=== PATIENT | female | born 1985 | race Caucasian/White ===

== ENCOUNTER 2022-04-26 01:31 | Day surgery (SDC) | payer OTHER, SELFPAY ==
[2022-04-25 10:08] VITALS: BMI 21.0
--- NOTE | 2022-04-25 10:18 | PC.NURSE ---
Report to the Outpatient Waiting Room, entrance under the green pavilion located off [facility], at time 1030 on date 04/26/22. OR Time: 1230 - You and your visitor will be asked a series of questions to screen for COVID 19 for your protection. - Only one visitor is allowed at this time. - The patient visitor is requested to leave or wait in car when not with patient. - A mask is required within the hospital. Patients may have clear liquids (water, carbonated beverages, clear teas, apple juice) until 3 hours prior to surgery with a maximum of 20 ounces. - No food from midnight until time of surgery - Infants may have breast milk until 4 hours before surgery, infant formula 6 hours prior to surgery. - Children will be allowed to drink immediately following surgery. If applicable, please bring a bottle or sippy cup to assist with drinking. Juice, water, soda, and popsicles are readily available. For infants on formula, please bring formula the day of surgery. Pacifiers are allowed. Take the following medications with a SIP of water the morning of surgery: NA Medications to discontinue per physician NA Date to take last dose Please no make-up, nail french, hairspray, perfume, deodorant, or body powder the day of surgery. No jewelry (including any body piercings) or valuables the day of surgery, leave them at home. Please take a shower or bath the night before, or the morning of, surgery with an antibacterial soap. Wear comfortable, loose fitting clothing. Children are encouraged to wear pajamas. - Jewelry must be removed prior to entering the operating room. Rings and piercings that are not removed may be cut off. - The hospital will not accept responsibility for valuables. - Please leave all valuables, including medications, at home the day of surgery. If you are going home after surgery, a licensed carrier driver must drive you home. - NO public transportation without another adult. - We recommend that an adult stay with you for 24 hours following discharge. - We also recommend that you do not drive, make important decision, drink alcoholic beverages, or take any drugs that were not prescribed by your health care provider for at least 24 hours after your discharge time. For Pediatric surgeries, we recommend two adults accompany the child home (only one inside the building at this time). Follow any additional instructions given to you from your surgeon. If you or anyone in your household have experienced Covid symptoms in the past week, please notify your surgeon or the nurse liaison at the phone number below for possible testing. Telephone instructions given to patient Tangela and asked if any additional questions and then verbalized understanding. Patient advised to call surgeon office or pre surgery nurse liaison [phone] if any additional questions.
[2022-04-26] VITALS (7 sets, daily range): BP systolic 125–139; BP diastolic 70–88; PULSE 56–90; RESP 17–21; TEMP 36.7–37; O2SAT 99–100
--- NOTE | ~2022-04-26 | XR_ITS ---
EXAMINATION: XR abdomen/kub 1V DATE: 04/26/2022 10:44 INDICATION: Kidney stone. TECHNIQUE: A supine view of the abdomen on 2 radiographs was obtained. COMPARISON: Abdomen radiographs 05/10/2016. FINDINGS: There are no dilated loops of bowel. There are approximately 5 stones in right kidney measu ring up to 3 mm. There is a 6 mm stone in left kidney. The kidneys are obscured by bowel. IMPRESSION: 1. Bilateral kidney stones. Reviewed, dictated and finalized at location A. IMPRESSION: 1. Bilateral kidney stones.
--- NOTE | 2022-04-26 07:00 | WPDHPUPDATE1 ---
History and Physical Update Update Date/Time: 04/26/22 07:00 History and Physical has been reviewed, including an updated exam of the patient. There are NO changes in the patient's condition. Risks, benefits, and alternatives have been discussed and questions answered. Patient agrees to proceed with procedure.
[2022-04-26] MEDS: LACTATED RINGERS 1,000 ML 30 ML IV CONT (11:15)
[2022-04-26] MEDS: SCOPOLAMINE 1.5 MG PATCH TRANSDERM (11:30)
[2022-04-26 11:36] LABS: Partial Thromboplastin Time 32.3 SECONDS (22.3-36.8)
--- NOTE | 2022-04-26 12:54 | P.PNAN_ITS ---
Anes - Initial Pre Proc Eval Procedure: Operation Date: 04/26/22 12:30 Proposed Procedures p Left Extracorporeal Shock Wave Lithotripsy, - Basilio James MD s Cystoscopy, Right Ureteroscopy with Possible Right Stone Extraction, Possible Right Stent Placement, Possible Holmium Laser - Basilio James MD Date/Time: 04/26/22 12:54 Surgeon: Basilio James MD Pre Op Diagnosis: bilat kidney stones Patient Data Age: 37 Gender: F Height: 1.6 m Weight: 54.2 kg Last Vital Signs Temp 37.0 C 04/26/22 11:15 Pulse 66 04/26/22 11:15 Resp 18 04/26/22 11:15 BP 139/87 04/26/22 11:15 Pulse Ox 100 04/26/22 11:15 O2 Del Method Room Air 04/26/22 11:15 Allergies Allergy/AdvReac Type Severity Reaction Status Date / Time No Known Allergies Allergy Unverified 04/26/22 11:40 Home Medications Medication Instructions Recorded Confirmed Type loratadine 10 mg tablet (Claritin) 10 mg PO DAILY 04/25/22 04/26/22 History Laboratory Tests 04/26/22 11:14 PT 13.0 Seconds Seconds (11.1-14.7) INR 1.0 APTT 32.3 SECONDS SECONDS (22.3-36.8) Patient hx anesthesia problems: none Family hx anesthesia problems: none Results Review: All pre-operative results and documents have been reviewed as part of the pre- operative evaluation. [facility] Past Medical History Medical History GERD (gastroesophageal reflux disease) Social History Social History Substance use: never Substance use type: does not use Living arrangements: with family Anes - Eval Final PreProcedure Day of Procedure 04/26/22 12:54 Patient weight: normal Heart: regular rate and rhythm Lungs: clear to auscultation Airway: Mallampati scale class II Neurological: alert and oriented Last oral intake: >/= 8 hours ASA classification: II Emergent: no Anesthetic plan: proceed Anesthesia type and monitoring: general LMA and standard monitoring Results Review: All pre-operative results and documents have been reviewed as part of the pre- operative evaluation. Informed Consent: The patient's anesthetic plan and its attendant risks and benefits were discussed with the patient/family/POA. Questions were solicited and answers provided to the satisfaction of the patient/family/POA.
[2022-04-26] MEDS: ceFAZolin 2 GM/D5W 50 ML 2 GM/50 ML BAG IVPB (13:20)
--- NOTE | 2022-04-26 13:31 | W.PM.PROC2 ---
Procedure Note - Detailed Date of Procedure 04/26/22 Pre-op Diagnosis Bilateral kidney stones, possible right distal ureteral calculus Post-op Diagnosis Other ( Bilateral kidney stones with no right ureteral calculi) Procedure Performed Cystoscopy, right ureteroscopy, left ESWL Surgeon Basilio James MD Description of Procedure patient is brought to the operative suite received prepped draped in routine sterile fashion while in dorsal lithotomy position after the uneventful induction of a general LMA anesthetic. Cystoscopy is undertaken with a 19 F rigid cystoscope. Her bladder neck urethra are endoscopically normal. Bladder mucosa is normal there was no intravesical foreign body or neoplasm. I placed a 0.035 in glidewire into the right renal pelvis and performed distal ureteroscopy to the mid ureter with a short tapered semi-rigid ureteral scope without the need for ureteral dilatation. Right distal ureter is endoscopically normal without hyperemia. There was no stones or other identifiable pathology. Scopes and wires were removed and she was positioned in the supine position. The focal point of the Lithotripter was placed at the collection of fiber 6 stones in her left lower pole calyx that were contiguous. A total of 2500 shocks were delivered at a power setting of 4. There appeared to be good fragmentation of the stones. She was taken to the recovery room in good condition. Drains No Packing No Pathology None sent Condition Stable Disposition PACU
== END 2022-04-26 15:20 | disposition home or self-care (01) ==
PROVIDERS: PCP Internal Medicine; Visit Provider Urology
PROC: (CPT 50590; principal; 2022-04-26 12:30)
PROC: (CPT 52352; 2022-04-26 12:30)
DX: N20.0 Calculus of kidney (principal); R10.9 Unspecified abdominal pain; R31.29 Other microscopic hematuria; K21.9 Gastro-esophageal reflux disease without esophagitis
CPT/HCPCS: 50590; 52000; 36415; 74018; 85610; 85730; A9270; C1769; J0690; J1100; J2250; J2405; J2704; J3010; J7030; J7120

== ENCOUNTER 2023-01-16 00:20 | Day surgery (SDC) | payer OTHER, SELFPAY ==
[2023-01-14 10:40] VITALS: BMI 20.6
--- NOTE | 2023-01-14 10:43 | PC.NURSE ---
Report to the Outpatient Waiting Room, entrance under the green pavilion located off [facility], at time 0600 on date 01/16/23. Planned Procedure Time: 0730. Time changes happen often and if your time is changed the preop area will call you the afternoon before. - You and your visitor will be asked to self-screen and do not enter if you have any COVID symptoms. - A mask is optional within the hospital at this time. Patients may have clear liquids (water, carbonated beverages, clear teas, apple juice) until 3 hours prior to surgery with a maximum of 20 ounces. - No food from midnight until time of surgery Take the following medications with a SIP of water the morning of surgery: NONE DO NOT STOP ANY OF YOUR OTHER PRESCRIPTION MEDICATIONS PRIOR TO SURGERY EXCEPT THE FOLLOWING Medications to discontinue per physician: N/A Date to take last dose: N/A Please no make-up, nail khmer, hairspray, perfume, deodorant, or body powder the day of surgery. No jewelry (including any body piercings) or valuables the day of surgery, leave them at home. Please take a shower or bath the night before, or the morning of, surgery with an antibacterial soap. Wear comfortable, loose fitting clothing. - Jewelry must be removed prior to entering the operating room. Rings and piercings that are not removed may be cut off. - The hospital will not accept responsibility for valuables. - Please leave all valuables, including medications, at home the day of surgery. If you are going home after surgery, a licensed sales warehouse driver must drive you home. - NO public transportation without another adult if you receive anesthesia. - We recommend that an adult stay with you for 24 hours following discharge. - We also recommend that you do not drive, make important decision, drink alcoholic beverages, or take any drugs that were not prescribed by your health care provider for at least 24 hours after your discharge time. Follow any additional instructions given to you from your surgeon. If you or anyone in your household have experienced Covid symptoms in the past week, please notify your surgeon or the nurse liaison at the phone number below for possible testing. Telephone instructions given to PT - YAMILETH CORREA and asked if any additional questions and then verbalized understanding. Patient advised to call surgeon office or pre surgery nurse liaison [phone] if any additional questions.
--- NOTE | 2023-01-14 16:39 | PM.HPGS ---
History of Present Illness History of Present Illness Consent: Risks, benefits, and alternatives have been discussed and questions answered. Patient agrees to proceed with procedure. Chief complaint: Right Kidney Stone Narrative: Angy Mac is a 37 year old female with a long history of recurrent urolithiasis who has required multiple procedures in the past. She recently called with persistent right flank pain and outside imaging with a KUB shows a new calcification measuring 7 mm in her right hemipelvis consistent with a distal ureteral calculus. After discussion of options we elected to forego CT imaging but proceed with cysto and ureteroscopy with stone extraction with possible retrograde pyelography laser lithotripsy and stent placement. She is aware the risk including, but not limited to, adverse cardiopulmonary events and need for additional procedures. Review of Systems Cardiovascular: Cardiovascular: Denies chest pain, Denies lightheadedness, Denies palpitations and Denies dyspnea Respiratory: Respiratory: Denies dyspnea Gastrointestinal: Gastrointestinal: Denies diarrhea, Denies nausea and Denies vomiting Genitourinary: Genitourinary: Denies hematuria and Denies dysuria Endocrine: Endocrine: Denies palpitations PENDING SALE TO [facility] Past Medical History Medical History GERD (gastroesophageal reflux disease) Social History Social History Smoking status: Never smoker Alcohol intake: current Alcohol use details: VERY RARE Substance use: never Substance use type: does not use Living arrangements: with family Spiritual care concerns: No Meds Home Medications and Allergies Home Medications Medication Instructions Recorded Confirmed Type loratadine 10 mg tablet (Claritin) 10 mg PO DAILY 04/25/22 01/14/23 History doxycycline hyclate 50 mg tablet 50 mg PO DAILY ACNE 01/14/23 01/14/23 History omeprazole 20 mg capsule,delayed 20 mg PO DAILY 01/14/23 01/14/23 History release spironolactone 50 mg tablet 50 mg PO DAILY ACNE 01/14/23 01/14/23 History Allergies Allergy/AdvReac Type Severity Reaction Status Date / Time No Known Allergies Allergy Unverified 01/14/23 10:38 Exam Const: General: no acute distress Resp: Effort & Inspection: normal respiratory effort GI: Inspection: non-distended GI Palp: No abdominal tenderness and No Guarding due to palpation present (GI) Auscultation: normal bowel sounds Assessment and Plan Assessment and plan (1) Right ureteral stone: Code(s): N20.1 - Calculus of ureter Status: Acute Assessment and Plan: Cystoscopy, right ureteroscopy with stone extraction, possible laser lithotripsy, retrograde pyelography and stent placement
[2023-01-16] VITALS (7 sets, daily range): BP systolic 105–143; BP diastolic 70–84; PULSE 54–75; RESP 16–20; TEMP 36.2–36.3; O2SAT 100
--- NOTE | ~2023-01-16 | XR_ITS ---
XR fluoroscopy no charge 01/16/2023 07:46 Clinical indication: Renal stone TECHNIQUE: Fluoroscopy used during right ureteral procedure performed by [Basilio James MD] on 01/16/2023. 15 seconds of fluoroscopy with 2 images captured. FINDINGS: Correlate with procedure note. IMPRESSION: Fluoroscopy used during right ureteral procedure. Please refer to procedural report. Reviewed, dictated and finalized at location B. IMPRESSION: Fluoroscopy used during right ureteral procedure. Please refer to p rocedural report.
[2023-01-16] MEDS: LACTATED RINGERS 1,000 ML 30 ML IV CONT (06:45)
--- NOTE | 2023-01-16 06:50 | WPDHPUPDATE1 ---
History and Physical Update Update Date/Time: 01/16/23 06:50 History and Physical has been reviewed, including an updated exam of the patient. There are NO changes in the patient's condition. Risks, benefits, and alternatives have been discussed and questions answered. Patient agrees to proceed with procedure.
--- NOTE | 2023-01-16 07:02 | P.PNAN_ITS ---
Anes - Initial Pre Proc Eval Procedure: Operation Date: 01/16/23 07:30 Proposed Procedures p Cystoscopy, Right Ureteroscopy with Right Stone Extraction, Possible Right Retrograde Pyelogram, Possible Right Stent Placement, Possible Holmium Laser Lithotripsy - Basilio James MD Date/Time: 01/16/23 07:02 Surgeon: Basilio James MD Pre Op Diagnosis: Right Kidney Stone Patient Data Age: 37 Gender: F Height: 1.63 m Weight: 54.5 kg Allergies Allergy/AdvReac Type Severity Reaction Status Date / Time No Known Allergies Allergy Unverified 01/14/23 10:38 Home Medications Medication Instructions Recorded Confirmed Type loratadine 10 mg tablet (Claritin) 10 mg PO DAILY 04/25/22 01/14/23 History doxycycline hyclate 50 mg tablet 50 mg PO DAILY ACNE 01/14/23 01/14/23 History omeprazole 20 mg capsule,delayed 20 mg PO DAILY 01/14/23 01/14/23 History release spironolactone 50 mg tablet 50 mg PO DAILY ACNE 01/14/23 01/14/23 History Patient hx anesthesia problems: none Family hx anesthesia problems: none Results Review: All pre-operative results and documents have been reviewed as part of the pre- operative evaluation. [facility] Past Medical History Medical History GERD (gastroesophageal reflux disease) Social History Social History Smoking status: Never smoker Alcohol intake: current Alcohol use details: VERY RARE Substance use: never Substance use type: does not use Living arrangements: with family Spiritual care concerns: No Anes - Eval Final PreProcedure Day of Procedure 01/16/23 07:02 Patient weight: normal Heart: regular rate and rhythm Lungs: clear to auscultation Airway: Mallampati scale class II Neurological: alert and oriented Last oral intake: >/= 8 hours ASA classification: II Emergent: no Anesthetic plan: proceed Anesthesia type and monitoring: general LMA and standard monitoring Results Review: All pre-operative results and documents have been reviewed as part of the pre- operative evaluation. Informed Consent: The patient's anesthetic plan and its attendant risks and benefits were discussed with the patient/family/POA. Questions were solicited and answers provided to the satisfaction of the patient/family/POA.
[2023-01-16] MEDS: ceFAZolin 2 GM/D5W 50 ML 2 GM/50 ML BAG IVPB (07:21)
[2023-01-16] MEDS: LIDOCAINE HCL 2% GEL UROJET 10 ML PKG MUCOUS MEM (07:38)
--- NOTE | 2023-01-16 07:44 | P.OP_ITS ---
Procedure Note - Detailed Date of Procedure 01/16/23 Pre-op Diagnosis Right Ureteral Stone Post-op Diagnosis Same Procedure Performed Cystoscopy, right ureteroscopy Surgeon Basilio James MD Anesthesia General Description of Procedure Patient is brought to the operative suite where she has prepped draped in r outine sterile fashion while in dorsal lithotomy position. Cystoscopy is undertaken with a 19 F rigid cystoscope. Urethra bladder neck were normal. Bladder mucosa is normal there is no intravesical foreign body, neoplasm or stones. 0.035 in glidewire was advanced into her right renal pelvis under fluoroscopy in the distal ureter was dilated with an 8 F 10 F dilator. Ureteroscopy was undertaken with a short tapered semi-rigid ureteral scope. There are no identifiable stones or other pathology. Ureteroscopy was undertaken to the right UPJ. Scopes and wires removed the patient has taken r ecovery room good condition. Drains No Pathology None sent Complications No immediate complications Condition Stable
--- NOTE | 2023-01-16 09:17 | SUR.PHASEII ---
0905 - pt ready for discharge, waiting for ride
== END 2023-01-16 09:22 | disposition home or self-care (01) ==
PROVIDERS: PCP Internal Medicine; Visit Provider Urology
PROC: (CPT 52352; principal; 2023-01-16 07:30)
DX: N20.1 Calculus of ureter (principal); K21.9 Gastro-esophageal reflux disease without esophagitis
CPT/HCPCS: 52351; 99199; C1769; J0690; J1100; J2250; J2405; J2704; J3010; J7120